=== PATIENT | male | born 1945 | race Hispanic/Latino ===

== ENCOUNTER 2024-12-15 10:16 | Emergency (ER) | payer OTHER, SELFPAY ==
[2024-12-15] VITALS (10 sets, daily range): BP systolic 131–190; BP diastolic 70–98; PULSE 57–87; RESP 14–24; TEMP 36.7; O2SAT 94–98; BMI 29.2
--- NOTE | 2024-12-15 10:20 | DI.RAD.S_ITS ---
PROCEDURE: XR CHEST 1V INDICATIONS: Chest Pain TECHNIQUE: One view of the chest was acquired. COMPARISON: None. FINDINGS: Surgical changes and devices: None. Lungs and pleura: Lungs are clear. No pleural effusions or pneumothorax. Mediastinum: Mediastinal contours appear normal. Heart size is normal. Bones and chest wall: No suspicious bony lesions. Overlying soft tissues appear unremarkable. IMPRESSION: No acute cardiopulmonary abnormality is seen. Approved by: Oleg Sarah M.D. on 12/15/2024 at 11:22
--- NOTE | 2024-12-15 10:24 | EKG_ITS ---
[facility] [address] [place] [address] Test Date: 2024-12-15 Pat Name: Arron Farley Department: [facility] Room: Gender: Male Marketing Program Manager: : 1945 Requested By: Order Number: [id number] Reading MD: Olegario Lanza MD Measurements Intervals [place] Rate: 85 P: 32 OR: 138 QRS: 12 QRSD: 92 T: 32 QT: 360 QTc: 428 Interpretive Statements Normal sinus rhythm ST & T wave abnormality, consider anterolateral ischemia Electronically Signed On 12-15-2024 11:27:19 PDT by Olegario Lanza MD
[2024-12-15] MEDS: ASPIRIN 81 MG CHEW TAB 324 MG PO (10:32)
--- NOTE | 2024-12-15 10:36 | ED.CHESTPAIN ---
HPI - Chest Pain General Chief Complaint: Chest Pain Stated Complaint: CHEST PAINS Time Seen by Provider: 12/15/24 10:21 History of Present Illness HPI narrative: 79-year-old female history of GERD was driving today when he started having midsternal chest pain described as pressure sensation radiates to the left side of the chest but no nausea diaphoresis describes this ast 2/3 out of 10 at this time. Patient has not taken anything prior to arrival here. No history of CAD stents bypass or any cardiac stress test in the past. Other than what is stated 14 point review of system is negative. Related Data Home Medications ?Medication ?Instructions ?Recorded ?Confirmed IBUPROFEN (Motrin / Advil) 600 mg PO PRN ##0 03/21/06 Allergies Allergy/AdvReac Type Severity Reaction Status Date / Time No Known Drug Allergies Allergy Verified 12/15/24 10:36 Review of Systems Review of Systems ROS Unobtainable: All systems reviewed & are unremarkable except as noted in HPI and below Patient History Social History Smoking Status: Former smoker Exam Narrative Exam Narrative: GENERAL: [79] year old patient appears stated age. Well-developed patient, in mild distress. HEAD: Atraumatic. Normocephalic. EYES: Pupils equal round and reactive. Extraocular motions intact. No scleral icterus. No injection or drainage. ENT: Nose without bleeding, purulent drainage. Throat without erythema, tonsillar hypertrophy or exudate. Airway patent. NECK: Trachea midline. Non tender CARDIOVASCULAR: Regular rate and rhythm without murmurs, gallops, or rubs. RESPIRATORY: Clear to auscultation. Breath sounds equal bilaterally. No wheezes, rales, or rhonchi. GASTROINTESTINAL: Abdomen soft, non-tender, nondistended. EXTREMITIES: No edema or joint tenderness. BACK: Nontender without deformity or crepitance. No flank tenderness. NEURO: AOx3. SKIN: No rash or erythema of visible areas Initial Vital Signs Initial Vital Signs: Vital Signs Pulse Rate 84 12/15/24 10:24 Pulse Oximetry 98 12/15/24 10:24 Scores HEART Score Heart Score history: Slightly Suspicious Heart Score EKG: Normal Heart Score Age: > or = 65 years old Heart Score risk factors: 1-2 risk factors Heart Score troponin: < or = to normal limit Heart Score Total: 3 Course Orders Ordered: ED Orders 12/15/24 10:20 XR chest 1V Stat EKG-12 Lead Stat 12/15/24 10:30 Complete Blood Count AUTO DIFF Stat Comprehensive Metabolic Panel Stat Lipase Stat Magnesium Stat NT-proBNP (BNP-Adult 18+) Stat PTT Partial Thromboplastin Mamadou Stat Prothrombin Time INR Stat Troponin & CK Cardiac Panel Stat 12/15/24 12:25 Trop I [Troponin I] Stat Nitroglycerin (Nitroglycerin 0.4 Mg Sl Tab) 0.4 mg SL [id number] PRN PRN Reason: Chest Pain Last Admin: 12/15/24 10:56 Dose: 0.4 mg Documented By: EMIL Discontinued Medications Aspirin (Aspirin 81 Mg Chew Tab) 324 mg PO NOW ONE Stop: 12/15/24 10:21 Last Admin: 12/15/24 10:32 Dose: 324 mg Documented By: EMIL Vital Signs Vital signs: Vital Signs - 8 hr 12/15/24 10:24 12/15/24 10:25 12/15/24 10:30 Temperature 98.0 F Pulse Rate 84 87 78 Respiratory Rate 16 14 Blood Pressure 190/93 H Pulse Oximetry 98 98 97 Oxygen Delivery Method Room Air 12/15/24 10:30 12/15/24 10:56 12/15/24 11:00 Temperature Pulse Rate 77 Respiratory Rate Blood Pressure 187/98 H 187/81 H 147/78 H Pulse Oximetry Oxygen Delivery Method 12/15/24 11:00 12/15/24 11:30 12/15/24 11:30 Temperature Pulse Rate 79 65 Respiratory Rate 24 22 Blood Pressure 140/76 Pulse Oximetry 95 94 Oxygen Delivery Method 12/15/24 12:00 12/15/24 12:00 12/15/24 12:30 Temperature Pulse Rate 64 61 Respiratory Rate 22 23 Blood Pressure 131/70 Pulse Oximetry 95 95 Oxygen Delivery Method 12/15/24 12:30 Temperature Pulse Rate Respiratory Rate Blood Pressure 143/76 H Pulse Oximetry Oxygen Delivery Method MDM - Chest Pain Lab Data 12/15/24 10:30 12/15/24 10:30 Labs: Lab Results 12/15/24 12/15/24 Range/Units 10:30 12:25 WBC 8.1 (4.5-11.0) X10^3/uL RBC 5.29 (4.5-5.9) X10^6/uL Hgb 15.8 (13.5-17.5) g/dL Hct 46.2 (41-53) % MCV 87.4 (80-100) fL MCH 29.9 (26-34) PG MCHC 34.2 (30-36) % RDW 13.5 (11.6-14.8) % Plt Count 276 (150-400) X10^3/uL Neut % (Auto) 70.0 (50-75) % Lymph % (Auto) 22.7 L (25-40) % [place] % (Auto) 5.1 (3-14) % Eos % (Auto) 1.4 L (2-4) % Baso % (Auto) 0.8 (0-2) % Neut # (Auto) 5700 (6511-7430) /uL Lymph # (Auto) 1800 (0539-0006) /uL [place] # (Auto) 400 (0-900) /uL Eos # (Auto) 100 (0-450) /uL Baso # (Auto) 100 (0-100) /uL PT 12.3 (9.4-12.5) SECONDS INR 1.1 (0.9-1.3) APTT 33 (25.1-36.5) SECONDS Sodium 139 (137-145) mmol/L Potassium 3.9 (3.4-5.1) mmol/L Chloride 103 (98-107) mmol/L Carbon Dioxide 26 (22-32) mmol/L BUN 11 (9-20) mg/dL Creatinine 0.84 (0.66-1.25) mg/dL Estimated GFR > 60 (>60) mL/min BUN/Creatinine Ratio 13.1 (6-22) Glucose 149 H (70-99) mg/dL Calcium 9.3 (8.4-10.2) mg/dL Magnesium 2.0 (1.6-2.3) mg/dL Total Bilirubin 0.8 (0.2-1.3) mg/dL AST 38 (17-59) IU/L ALT 35 (<50) IU/L Alkaline Phosphatase 104 (38-126) U/L Total Creatine Kinase 82 (55-170) U/L Troponin I < 0.012 < 0.012 (0.01-0.034) ng/mL NT-Pro-B Natriuret Pep 226 (<450) pg/mL Total Protein 8.2 (6.3-8.2) g/dL Albumin 4.6 (3.5-5.0) g/dL Globulin 3.6 (1.7-4.1) g/dL Albumin/Globulin Ratio 1.3 (1.0-2.8) Lipase 46 (23-300) U/L Imaging Data Chest x-ray: Radiologist's Impression: [address] [address] XRay Report Signed Patient: Arron Farley MR#: [id number] : 1945 Acct:[id number] Age/Sex: 79 / M Date of Service: 12/15/24 Loc: ED Accession Number: [id number] Procedure: XR chest 1V Ordering Provider: Olegario Kelly D.O. PROCEDURE: XR CHEST 1V INDICATIONS: Chest Pain TECHNIQUE: One view of the chest was acquired. COMPARISON: None. FINDINGS: Surgical changes and devices: None. Lungs and pleura: Lungs are clear. No pleural effusions or pneumothorax. Mediastinum: Mediastinal contours appear normal. Heart size is normal. Bones and chest wall: No suspicious bony lesions. Overlying soft tissues appear unremarkable. IMPRESSION: No acute cardiopulmonary abnormality is seen. ECG Data Interpretation: NSR HR 85 MT 138 QRS [address]-t wave change NO previous EKG to compare MDM Narrative Medical decision making narrative: All lab work vital signs nurse triage note medication list previous ER visits in all imaging studies reviewed. Chest x-ray showed no acute process. Patient given 4 baby aspirin and 1 nitro here. Patient completely pain-free at this time. EKG showed normal sinus rhythm no ST T wave changes. Heart score 3. Differential diagnosis STEMI NSTEMI unstable angina GERD anxiety. Patient will follow up with PCP in 1-2 days for re-evaluation. Discharge Plan Departure Patient Disposition: Home Clinical Impression: Chest pain Instructions: DI for Chest Pain Activity Restrictions/Additional Instructions: Return with new or worsening symptoms. Follow up PCP in 1-2 days for re-evaluation. Prescriptions: No Action IBUPROFEN (Motrin / Advil) 600 mg PO PRN Qty: 0 Stand Alone Forms: Patient Portal/API
[2024-12-15 10:46] LABS: Add Manual Diff / Slide Review NO; Hematocrit 46.2 % (41-53); Hemoglobin 15.8 g/dL (13.5-17.5); Lymphocytes Absolute Auto 1800 /uL (1100-4500); Mean Corpuscular HGB Conc 34.2 % (30-36); Mean Corpuscular Hemoglobin 29.9 PG (26-34); Mean Corpuscular Volume 87.4 fL (80-100); Platelet Count 276 X10^3/uL (150-400)
[2024-12-15] MEDS: NITROGLYCERIN 0.4 MG SL TAB SL (10:56)
[2024-12-15 11:03] LABS: Alanine Aminotransferase 35 IU/L (<50); Albumin 4.6 g/dL (3.5-5.0); Albumin Globulin Ratio 1.3 (1.0-2.8); Alkaline Phosphatase 104 U/L (38-126); Blood Urea Nitrogen 11 mg/dL (9-20); Calcium 9.3 mg/dL (8.4-10.2); Carbon Dioxide 26 mmol/L (22-32); Chloride 103 mmol/L (98-107); Creatine Kinase 82 U/L (55-170); Estimated Glomerular Filt Rate > 60 mL/min (>60); Globulin 3.6 g/dL (1.7-4.1); Glucose 149 mg/dL (70-99); HEMOLYSIS < 15 (0-50); Lipase 46 U/L (23-300); Magnesium 2.0 mg/dL (1.6-2.3); Potassium 3.9 mmol/L (3.4-5.1); Sodium 139 mmol/L (137-145); Total Protein 8.2 g/dL (6.3-8.2)
--- NOTE | 2024-12-15 11:11 | PC.NURSE ---
reports resolution of pain post NTG x1. BP improved from 187/sys to 147/sys. No headache.
[2024-12-15 11:12] LABS: INR 1.1 (0.9-1.3); Prothrombin Time 12.3 SECONDS (9.4-12.5)
[2024-12-15 11:15] LABS: NT-proBNP (BNP-Adult 18+) 226 pg/mL (<450); PTT Partial Thromboplastin Tim 33 SECONDS (25.1-36.5); Troponin I < 0.012 ng/mL (0.01-0.034)
[2024-12-15 12:59] LABS: Troponin I < 0.012 ng/mL (0.01-0.034)
== END 2024-12-15 13:30 | disposition home or self-care (01) ==
PROVIDERS: Emergency Provider Family Medicine
DX: R07.9 Chest pain, unspecified (principal)
CPT/HCPCS: 36415; 71045; 80053; 82550; 83690; 83735; 83880; 84484; 85025; 85610; 85730; 93005; 93010; 99284